=== PATIENT | female | born 1960 | race African-American/Black ===

== ENCOUNTER 2022-03-19 08:41 | Emergency (ER) | payer OTHER, MEDICAID ==
[~2022-03-19] VITALS: Ht 160 cm; Wt 76.1 kg
[~2022-03-19 08:41] MED LIST: FLUT100M7 IN; LIS5T GT; MON10T GT; TRIA50TA2 PO
[2022-03-19 09:17] VITALS: BP 129/102
[2022-03-19] MEDS ORDERED: ALBUTEROL MEDNEB 2.5 mg/3ml NEB ONE (09:24)
[2022-03-19] MEDS ORDERED: IPRATROPIUM BROM 0.5 MG/2.5ML INH SOL NEB ONE (09:30)
[2022-03-19] MEDS ORDERED: ALBUTEROL SULF 2.5 MG/0.5ML(0.5%) NEB SOLN NEB ONE (09:30)
[2022-03-19] MEDS ORDERED: PROMETHAZINE-DM 5 ML ORAL SYRUP PO ONE (09:30)
[2022-03-19] MEDS ORDERED: methylPREDNISolone SOD SUCC 125 MG/2 ML VL IM ONE (09:30)
[2022-03-19] MEDS ORDERED: PROM1SOL4 PO (09:57)
[2022-03-19] MEDS ORDERED: LEVO500T31 PO (09:57)
[2022-03-19] MEDS ORDERED: PRED20TA2 PO (09:57)
== END 2022-03-19 10:15 | disposition home or self-care (01) ==
LOC: ER 08:41
DX: J20.9 Acute bronchitis, unspecified (principal); J44.0 Chronic obstructive pulmonary disease with (acute) lower respiratory infection; I10 Essential (primary) hypertension; F17.210 Nicotine dependence, cigarettes, uncomplicated; Z98.51 Tubal ligation status
CPT/HCPCS: 71046; 93005; 94640; 96372; 99283; J2930; J7644

== ENCOUNTER 2022-10-30 19:40 | Inpatient (IN) | payer OTHER, MEDICAID ==
[~2022-10-30] VITALS: Ht 160 cm; Wt 80.0 kg
[~2022-10-30 19:40] MED LIST changes: +LEVO500T31 PO; +PRED20TA2 PO; +PROM1SOL4 PO; -TRIA50TA2 PO; +TRIA75TA11 PO
[2022-10-30] MEDS ORDERED: ALBUTEROL SULF 2.5 MG/0.5ML(0.5%) NEB SOLN HHN ONE (20:15)
[2022-10-30] MEDS ORDERED: IPRATROPIUM BROM 0.5 MG/2.5ML INH SOL HHN ONE (20:15)
[2022-10-30 21:05] LABS: Urine Bacteria NONE SEEN /hpf (None Seen); Urine Blood 1+ /uL (Negative); Urine Clarity Clear (Clear); Urine Color Yellow (Yellow); Urine Hyaline Cast FEW /lpf (0 - 2); Urine Protein, UAD Negative (Negative); Urine Specific Gravity 1.028 (1.001-1.035); Urine Urobilinogen Normal (Negative); Urine WBC 1 /hpf (0 - 5)
[2022-10-30 21:11] LABS: COVID19 ANTIGEN SOFIA FIA NEGATIVE (NEGATIVE); Rapid Influenza A Negative (Negative); Rapid Influenza B Negative (Negative)
[2022-10-30 21:37] VITALS: PULSE 72; RESP 16; O2SAT 100
[2022-10-30 21:43] LABS: Basophils # (auto) 0.1 10 ^3/uL (0-0.2); Basophils % (auto) 0.5 % (0.0-2.0); Eosinophils # (auto) 0.3 10 ^3/uL (0-0.8); Eosinophils % (auto) 2.1 % (0.0-7.0); Hematocrit 42.8 % (36.0-46.0); Hemoglobin 13.8 g/dL (12.2-16.2); Lymphocytes # (auto) 5.4 10 ^3/uL (0.4-5.4); Lymphocytes % (auto) 43.4 % (10.0-50.0); Mean Corpuscular Hemoglobin 28.1 pg (28.0-32.0); Mean Corpuscular Hgb Conc. 32.2 g/dL (32.0-36.0); Monocytes # (auto) 0.8 10 ^3/uL (0-1.3); Monocytes % (auto) 6.4 % (0.0-12.0); Neutrophils # (auto) 5.9 10 ^3/uL (1.6-8.6); Neutrophils % (auto) 47.6 % (37.0-80.0); Red Blood Cells 4.91 10^6/uL (4.0-5.20); Red Cell Distribution Width 13.8 % (11.8-14.3); White Blood Cell 12.4 10^3/uL (4.4-10.8)
[2022-10-30] MEDS ORDERED: ALBUTEROL SULF 2.5 MG/0.5ML(0.5%) NEB SOLN NEB PRN (22:00)
[2022-10-30] MEDS ORDERED: ACETAMINOPHEN 325 MG TAB PO PRN (22:00)
[2022-10-30] MEDS ORDERED: ONDANSETRON HCL 4 MG/2 ML VIAL IV PRN (22:00)
[2022-10-30] MEDS ORDERED: HYDROcodone-ACET 5/325MG TAB PO PRN (22:00)
[2022-10-30] MEDS ORDERED: IPRATROPIUM BROM 0.5 MG/2.5ML INH SOL NEB PRN (22:00)
[2022-10-30] MEDS ORDERED: hydrALAZINE HCL 20 MG/ML VL IV PRN (22:00)
[2022-10-30] MEDS ORDERED: DOCUSATE SOD 100 MG CAP PO PRN (22:00)
[2022-10-30 22:07] LABS: Alanine Aminotransferase 12 U/L (7-40); Albumin 4.2 g/dL (3.2-4.8); Alkaline Phosphatase 76 U/L (46-116); Anion Gap 4 (5-15); Aspartate Aminotransferase < 8 U/L (13-40); BUN/Creatinine Ratio 10.9 (10.0-20.0); Bilirubin, Total 0.2 mg/dL (0.2-1.0); Blood Urea Nitrogen 10 mg/dL (9-23); Calcium 9.4 mg/dL (8.7-10.4); Carbon Dioxide 30 mmol/L (20-30); Chloride 109 mmol/L (98-107); Glucose 118 mg/dL (74-106); Magnesium 1.8 mg/dL (1.6-2.6); Potassium 3.8 mmol/L (3.5-5.1); Sodium 143 mmol/L (136-145); Total Protein 6.5 g/dL (5.7-8.2)
[2022-10-30 22:37] VITALS: BP 175/73; PULSE 72; RESP 16; TEMP 98.4; O2SAT 98
[2022-10-30] MEDS ORDERED: MORPHINE SULFATE INJ 2 MG/ml SYRG IV PRN (22:45)
[2022-10-30] MEDS ORDERED: NITROGLYCERIN 0.4 MG SL TAB SL PRN (22:45)
[2022-10-30] MEDS: SODIUM CHLOR 0.9% PF (SALINE LOCK) 10ML VIAL/SYR IV SCH (22:51)
[2022-10-30] MEDS: methylPREDNISolone SOD SUCC 40 MG/ML VL IV SCH (22:51)
[2022-10-30] MEDS: FAMOTIDINE (10MG/ML) 2ML VL IV SCH (22:51)
[2022-10-30 23:00] VITALS: PULSE 62; RESP 20; O2SAT 100
[2022-10-31] VITALS (17 sets, daily range): BP systolic 119–150; BP diastolic 53–60; PULSE 57–80; RESP 16–20; TEMP 97.7–97.9; O2SAT 95–100
[2022-10-31 04:40] LABS: Basophils # (auto) 0 10 ^3/uL (0-0.2); Basophils % (auto) 0.3 % (0.0-2.0); Eosinophils # (auto) 0 10 ^3/uL (0-0.8); Hematocrit 40.8 % (36.0-46.0); Hemoglobin 13.5 g/dL (12.2-16.2); Lymphocytes # (auto) 0.8 10 ^3/uL (0.4-5.4); Lymphocytes % (auto) 7.8 % (10.0-50.0); Mean Corpuscular Hemoglobin 28.6 pg (28.0-32.0); Mean Corpuscular Volume 86.6 fL (80.0-100.0); Monocytes # (auto) 0.1 10 ^3/uL (0-1.3); Monocytes % (auto) 1.1 % (0.0-12.0); Neutrophils # (auto) 9.6 10 ^3/uL (1.6-8.6); Neutrophils % (auto) 90.8 % (37.0-80.0); Red Blood Cells 4.71 10^6/uL (4.0-5.20); White Blood Cell 10.6 10^3/uL (4.4-10.8)
[2022-10-31 04:58] LABS: Alanine Aminotransferase 12 U/L (7-40); Albumin 4.2 g/dL (3.2-4.8); Alkaline Phosphatase 58 U/L (46-116); Calcium 8.9 mg/dL (8.5-10.1); Carbon Dioxide 24 mmol/L (20-30); Chloride 110 mmol/L (98-107)
[2022-10-31 04:59] LABS: Anion Gap 8 (5-15); Aspartate Aminotransferase 8 U/L (13-40); BUN/Creatinine Ratio 12.8 (10.0-20.0); Bilirubin, Total 0.3 mg/dL (0.2-1.0); Blood Urea Nitrogen 10 mg/dL (9-23); Glucose 153 mg/dL (74-106); Potassium 4.3 mmol/L (3.5-5.1); Sodium 142 mmol/L (136-145); Total Protein 6.5 g/dL (5.7-8.2)
[2022-10-31] MEDS: SODIUM CHLOR 0.9% PF (SALINE LOCK) 10ML VIAL/SYR IV SCH ×3 (06:09→21:55)
[2022-10-31] MEDS: methylPREDNISolone SOD SUCC 40 MG/ML VL IV SCH (06:58)
[2022-10-31] MEDS ORDERED: LISINOPRIL 10 MG TAB PO SCH (10:00)
[2022-10-31] MEDS: FAMOTIDINE (10MG/ML) 2ML VL IV SCH ×2 (10:14→21:47)
[2022-10-31] MEDS: AZITHROMYCIN 500MG/ 250ML 250 ML IV SCH (11:17)
[2022-10-31] MEDS ORDERED: CYCLOBENZAPRINE HCL 10 MG TAB PO PRN (13:15)
[2022-10-31] MEDS ORDERED: NICOTINE 14 MG/24HR TOPICAL PATCH TD ONE (13:15)
[2022-10-31] MEDS ORDERED: ALBUTEROL SULF 2.5 MG/0.5ML(0.5%) NEB SOLN NEB PRN (13:30)
[2022-10-31] MEDS: IPRATROPIUM BROM 0.5 MG/2.5ML INH SOL NEB SCH (18:21)
[2022-10-31] MEDS: ALBUTEROL SULF 2.5 MG/0.5ML(0.5%) NEB SOLN NEB SCH (18:21)
[2022-10-31] MEDS: ATORVASTATIN 20 MG TAB PO SCH (21:47)
[2022-10-31] MEDS: methylPREDNISolone SOD SUCC 125 MG/2 ML VL IV SCH (21:50)
[2022-11-01] VITALS (14 sets, daily range): BP systolic 117–154; BP diastolic 59–69; PULSE 56–81; RESP 14–20; TEMP 36.5; O2SAT 93–100
[2022-11-01] MEDS: IPRATROPIUM BROM 0.5 MG/2.5ML INH SOL NEB SCH ×3 (05:52→19:50)
[2022-11-01] MEDS: ALBUTEROL SULF 2.5 MG/0.5ML(0.5%) NEB SOLN NEB SCH ×3 (05:52→19:50)
[2022-11-01] MEDS: SODIUM CHLOR 0.9% PF (SALINE LOCK) 10ML VIAL/SYR IV SCH ×3 (05:53→21:09)
[2022-11-01 06:22] LABS: Basophils # (auto) 0 10 ^3/uL (0-0.2); Eosinophils # (auto) 0 10 ^3/uL (0-0.8); Hematocrit 44.3 % (36.0-46.0); Hemoglobin 14.3 g/dL (12.2-16.2); Lymphocytes # (auto) 1.4 10 ^3/uL (0.4-5.4); Lymphocytes % (auto) 8.5 % (10.0-50.0); Mean Corpuscular Hemoglobin 27.9 pg (28.0-32.0); Mean Corpuscular Hgb Conc. 32.4 g/dL (32.0-36.0); Mean Corpuscular Volume 86.3 fL (80.0-100.0); Monocytes # (auto) 0.4 10 ^3/uL (0-1.3); Monocytes % (auto) 2.2 % (0.0-12.0); Neutrophils # (auto) 14.4 10 ^3/uL (1.6-8.6); Neutrophils % (auto) 89.3 % (37.0-80.0); Red Blood Cells 5.13 10^6/uL (4.0-5.20); Red Cell Distribution Width 14.1 % (11.8-14.3); White Blood Cell 16.1 10^3/uL (4.4-10.8)
[2022-11-01 06:38] LABS: Alanine Aminotransferase 11 U/L (7-40); Albumin 4.1 g/dL (3.2-4.8); Alkaline Phosphatase 55 U/L (46-116); Anion Gap 5 (5-15); Aspartate Aminotransferase < 8 U/L (13-40); Blood Urea Nitrogen 10 mg/dL (9-23); Carbon Dioxide 27 mmol/L (20-30); Chloride 108 mmol/L (98-107); Cholesterol 246 mg/dL (< 200); Glucose 144 mg/dL (74-106); LDL Cholesterol 161 mg/dL (< 100); Magnesium 1.7 mg/dL (1.6-2.6); Potassium 4.3 mmol/L (3.5-5.1); Sodium 140 mmol/L (136-145); Triglycerides 64 mg/dL (< 150)
[2022-11-01 06:39] LABS: Bilirubin, Total 0.4 mg/dL (0.2-1.0); HDL Cholesterol 75 mg/dL (40-59); Total Protein 6.4 g/dL (5.7-8.2)
[2022-11-01 06:45] LABS: INR 0.98 (0.9-1.15); Prothrombin Time 10.3 sec (9.3-11.8)
[2022-11-01] MEDS: FAMOTIDINE (10MG/ML) 2ML VL IV SCH ×2 (09:26→21:08)
[2022-11-01] MEDS: methylPREDNISolone SOD SUCC 125 MG/2 ML VL IV SCH ×2 (09:26→21:06)
[2022-11-01] MEDS: AZITHROMYCIN 500MG/ 250ML 250 ML IV SCH (09:27)
[2022-11-01] MEDS ORDERED: LISINOPRIL 10 MG TAB PO SCH (10:00)
[2022-11-01] MEDS ORDERED: NICOTINE 14 MG/24HR TOPICAL PATCH TD SCH (10:00)
[2022-11-01] MEDS: ATORVASTATIN 20 MG TAB PO SCH (21:09)
[2022-11-02 05:00] VITALS: BP 127/62; PULSE 64; RESP 16; TEMP 98; O2SAT 93
[2022-11-02] MEDS: SODIUM CHLOR 0.9% PF (SALINE LOCK) 10ML VIAL/SYR IV SCH (06:30)
[2022-11-02 07:42] VITALS: PULSE 70; RESP 20; O2SAT 90
[2022-11-02] MEDS: ALBUTEROL SULF 2.5 MG/0.5ML(0.5%) NEB SOLN NEB SCH (07:49)
[2022-11-02] MEDS: IPRATROPIUM BROM 0.5 MG/2.5ML INH SOL NEB SCH (07:49)
[2022-11-02 07:58] VITALS: PULSE 73; RESP 18; O2SAT 96
[2022-11-02] MEDS ORDERED: AZIT500T66 PO (07:58)
[2022-11-02] MEDS ORDERED: NICO14DI5 TD (07:58)
[2022-11-02] MEDS ORDERED: METH4PAK PO (07:58)
[2022-11-02 08:00] VITALS: BP 152/66; PULSE 62; RESP 21; TEMP 97.8; O2SAT 93
[2022-11-02 08:14] VITALS: BP 152/66; PULSE 62; RESP 21; TEMP 97.8; O2SAT 93
[2022-11-03 11:57] LABS: Folate (Folic Acid) 4.65 ng/mL (>5.38)
== END 2022-11-02 09:00 | disposition home or self-care (01) | DRG 189 ==
LOC: ER 19:40 → TELE 22:44 → TELE-CENTR 10-31 10:10
PROVIDERS: ADMIT Nurse Practitioner Family; ATTEND Internal Medicine Pulmonary Disease
DX: J96.21 Acute and chronic respiratory failure with hypoxia (principal); J44.1 Chronic obstructive pulmonary disease with (acute) exacerbation; J44.0 Chronic obstructive pulmonary disease with (acute) lower respiratory infection; J20.9 Acute bronchitis, unspecified; E78.00 Pure hypercholesterolemia, unspecified; F17.210 Nicotine dependence, cigarettes, uncomplicated; E66.3 Overweight; I10 Essential (primary) hypertension; Z20.822 Contact with and (suspected) exposure to COVID-19; Z80.1 Family history of malignant neoplasm of trachea, bronchus and lung; Z90.49 Acquired absence of other specified parts of digestive tract; Z82.49 Family history of ischemic heart disease and other diseases of the circulatory system; Z82.5 Family history of asthma and other chronic lower respiratory diseases; Z71.6 Tobacco abuse counseling; Z68.28 Body mass index [BMI] 28.0-28.9, adult
CPT/HCPCS: 36415; 71046; 74176; 80053; 80061; 81001; 82306; 82607; 82746; 83036; 83605; 83735; 83880; 84443; 84484; 85025; 85379; 85610; 87040; 87426; 87804; 93970; 94640; 94644; 96374; G0378; J3490

== ENCOUNTER 2022-12-17 13:10 | Emergency (ER) | payer OTHER, MEDICAID ==
[~2022-12-17] VITALS: Ht 160 cm; Wt 72.2 kg
[~2022-12-17 13:10] MED LIST changes: +AZIT500T66 PO; +METH4PAK PO; +NICO14DI5 TD
[2022-12-17 14:43] LABS: Alanine Aminotransferase 16 U/L (7-40); Albumin 4.4 g/dL (3.2-4.8); Alkaline Phosphatase 71 U/L (46-116); Anion Gap 6 (5-15); Aspartate Aminotransferase 14 U/L (13-40); BUN/Creatinine Ratio 9.9 (10.0-20.0); Basophils # (auto) 0 10 ^3/uL (0-0.2); Basophils % (auto) 0.4 % (0.0-2.0); Bilirubin, Total 0.4 mg/dL (0.2-1.0); Blood Urea Nitrogen 9 mg/dL (9-23); Carbon Dioxide 30 mmol/L (20-30); Chloride 109 mmol/L (98-107); Eosinophils # (auto) 0.4 10 ^3/uL (0-0.8); Eosinophils % (auto) 3.9 % (0.0-7.0); Glucose 97 mg/dL (74-106); Hematocrit 44.5 % (36.0-46.0); Hemoglobin 14.2 g/dL (12.2-16.2); Lipase 36 U/L (12-53); Lymphocytes # (auto) 3.2 10 ^3/uL (0.4-5.4); Lymphocytes % (auto) 28.9 % (10.0-50.0); Mean Corpuscular Hemoglobin 27.5 pg (28.0-32.0); Monocytes # (auto) 0.8 10 ^3/uL (0-1.3); Monocytes % (auto) 7.5 % (0.0-12.0); Neutrophils # (auto) 6.6 10 ^3/uL (1.6-8.6); Neutrophils % (auto) 59.3 % (37.0-80.0); Nucleated Red Blood Cells % 0.1 %; Potassium 3.9 mmol/L (3.5-5.1); Red Blood Cells 5.17 10^6/uL (4.0-5.20); Red Cell Distribution Width 14.1 % (11.8-14.3); Sodium 145 mmol/L (136-145); Total Protein 6.4 g/dL (5.7-8.2); White Blood Cell 11.1 10^3/uL (4.4-10.8)
[2022-12-17 14:43] LABS: Urine Bacteria NONE SEEN /hpf (None Seen); Urine Blood 2+ /uL (Negative); Urine Clarity Clear (Clear); Urine Color Yellow (Yellow); Urine Hyaline Cast FEW /lpf (0 - 2); Urine Mucus FEW (None Seen); Urine Protein, UAD TRACE (Negative); Urine Specific Gravity 1.031 (1.001-1.035); Urine WBC <1 /hpf (0 - 5); Urine pH 5.5 (5.0-8.0)
[2022-12-17] MEDS ORDERED: KETOROLAC TROMETH 60MG/2ML VIAL IM ONE (16:00)
[2022-12-17] MEDS ORDERED: HYDROcodone-ACET 5/325MG TAB PO ONE (16:00)
[2022-12-17 16:32] VITALS: BP 152/68; PULSE 71; RESP 18; TEMP 97.9; O2SAT 98
== END 2022-12-17 22:33 | disposition home or self-care (01) ==
LOC: ER 13:10
DX: R10.9 Unspecified abdominal pain (principal); I10 Essential (primary) hypertension; E78.5 Hyperlipidemia, unspecified; J44.9 Chronic obstructive pulmonary disease, unspecified; F17.210 Nicotine dependence, cigarettes, uncomplicated; Z98.890 Other specified postprocedural states; Z79.899 Other long term (current) drug therapy
CPT/HCPCS: 36415; 74176; 80053; 81001; 83605; 83690; 85025; 96372; 99285; J1885

== ENCOUNTER 2023-01-11 11:44 | Emergency (ER) | payer OTHER, MEDICAID ==
[~2023-01-11] VITALS: Ht 160 cm; Wt 71.3 kg
[2023-01-11 13:45] VITALS: BP 143/74; PULSE 78; TEMP 97.6
[2023-01-11] MEDS ORDERED: ALBUTEROL MEDNEB 2.5 mg/3ml NEB NEB ONE (14:00)
[2023-01-11] MEDS ORDERED: IPRATROPIUM BROM 0.5 MG/2.5ML INH SOL NEB ONE (14:00)
[2023-01-11 14:26] VITALS: RESP 24; O2SAT 96
== END 2023-01-11 15:47 | disposition home or self-care (01) ==
LOC: ER 11:44
DX: R51.9 Headache, unspecified (principal); J20.9 Acute bronchitis, unspecified; J44.0 Chronic obstructive pulmonary disease with (acute) lower respiratory infection; I10 Essential (primary) hypertension; E78.5 Hyperlipidemia, unspecified; F17.210 Nicotine dependence, cigarettes, uncomplicated; Z98.890 Other specified postprocedural states; Z79.899 Other long term (current) drug therapy; V89.2XXA Person injured in unspecified motor-vehicle accident, traffic, initial encounter; Y93.89 Activity, other specified; Y92.481 Parking lot as the place of occurrence of the external cause; Y99.8 Other external cause status
CPT/HCPCS: 70450; 71045; 94640; 99284; J7644

== ENCOUNTER 2023-03-17 02:37 | Inpatient (IN) | payer OTHER, MEDICAID ==
[2023-03-17] VITALS (7 sets, daily range): BP systolic 148; BP diastolic 75; PULSE 63–82; RESP 18–21; TEMP 97.7; O2SAT 95–100
[~2023-03-17] VITALS: Ht 160 cm; Wt 76.0 kg
[~2023-03-17 02:37] MED LIST changes: -MON10T GT; +MON10T PO
[2023-03-17] MEDS ORDERED: methylPREDNISolone SOD SUCC 125 MG/2 ML VL IV ONE (02:45)
[2023-03-17] MEDS ORDERED: IPRATROPIUM BROM 0.5 MG/2.5ML INH SOL HHN ONE (02:45)
[2023-03-17] MEDS ORDERED: ALBUTEROL SULF 2.5 MG/0.5ML(0.5%) NEB SOLN HHN ONE (02:45)
[2023-03-17 03:27] LABS: Basophils # (auto) 0 10 ^3/uL (0-0.2); Basophils % (auto) 0.2 % (0.0-2.0); Eosinophils # (auto) 0 10 ^3/uL (0-0.8); Eosinophils % (auto) 0.1 % (0.0-7.0); Hemoglobin 14.3 g/dL (12.2-16.2); Lymphocytes # (auto) 1.5 10 ^3/uL (0.4-5.4); Lymphocytes % (auto) 19.8 % (10.0-50.0); Mean Corpuscular Hemoglobin 27.8 pg (28.0-32.0); Mean Corpuscular Hgb Conc. 31.9 g/dL (32.0-36.0); Mean Corpuscular Volume 87.3 fL (80.0-100.0); Monocytes # (auto) 0.3 10 ^3/uL (0-1.3); Monocytes % (auto) 3.9 % (0.0-12.0); Neutrophils # (auto) 5.6 10 ^3/uL (1.6-8.6); Red Blood Cells 5.15 10^6/uL (4.0-5.20); White Blood Cell 7.4 10^3/uL (4.4-10.8)
[2023-03-17 03:37] LABS: Chloride 112 mmol/L (98-107); Sodium 143 mmol/L (136-145)
[2023-03-17 03:38] LABS: Anion Gap 6 (5-15); Carbon Dioxide 25 mmol/L (20-30)
[2023-03-17 03:43] LABS: BUN/Creatinine Ratio 11.3 (10.0-20.0); Blood Urea Nitrogen 9 mg/dL (9-23); Glucose 181 mg/dL (74-106)
[2023-03-17] MEDS ORDERED: ALBUTEROL SULF 2.5 MG/0.5ML(0.5%) NEB SOLN NEB ONE (06:15)
[2023-03-17] MEDS ORDERED: IPRATROPIUM BROM 0.5 MG/2.5ML INH SOL NEB ONE (06:15)
[2023-03-17] MEDS ORDERED: NITROGLYCERIN 0.4 MG SL TAB SL PRN (07:00)
[2023-03-17] MEDS ORDERED: ONDANSETRON HCL 4 MG/2 ML VIAL IV PRN (07:00)
[2023-03-17] MEDS ORDERED: MORPHINE SULFATE INJ 2 MG/ml SYRG IV PRN (07:00)
[2023-03-17] MEDS ORDERED: ACETAMINOPHEN 325 MG TAB PO PRN (07:00)
[2023-03-17] MEDS: ENOXAPARIN SOD 40 MG/0.4 ML SYRINGE SC SCH (10:39)
[2023-03-17] MEDS: hydroCHLOROthiazide 25 MG TAB PO SCH (10:39)
[2023-03-17] MEDS: LOSARTAN POTASSIUM 50 MG TAB PO SCH (10:40)
[2023-03-17] MEDS: ASPirin 81 mg TAB PO SCH (10:40)
[2023-03-17] MEDS ORDERED: guaiFENesin-DM 100/10mg/5ml SYR PO PRN (17:45)
[2023-03-17] MEDS: IPRATROPIUM BROM 0.5 MG/2.5ML INH SOL NEB PRN (17:58)
[2023-03-17] MEDS: ALBUTEROL SULF 2.5 MG/0.5ML(0.5%) NEB SOLN NEB PRN (17:59)
[2023-03-17] MEDS ORDERED: MONTELUKAST SODIUM 10 MG TAB PO SCH (22:00)
[2023-03-17] MEDS: ATORVASTATIN 20 MG TAB PO SCH (22:45)
[2023-03-18] VITALS (12 sets, daily range): BP systolic 130–178; BP diastolic 59–94; PULSE 53–80; RESP 16–20; TEMP 97.9–98.2; O2SAT 94–100
[2023-03-18] MEDS: ALBUTEROL SULF 2.5 MG/0.5ML(0.5%) NEB SOLN NEB PRN (01:05)
[2023-03-18] MEDS: IPRATROPIUM BROM 0.5 MG/2.5ML INH SOL NEB PRN (01:05)
[2023-03-18 05:12] LABS: Basophils # (auto) 0 10 ^3/uL (0-0.2); Basophils % (auto) 0.2 % (0.0-2.0); Chloride 109 mmol/L (98-107); Eosinophils # (auto) 0 10 ^3/uL (0-0.8); Eosinophils % (auto) 0.2 % (0.0-7.0); Hematocrit 40.4 % (36.0-46.0); Hemoglobin 12.8 g/dL (12.2-16.2); Lymphocytes # (auto) 3.3 10 ^3/uL (0.4-5.4); Lymphocytes % (auto) 20.1 % (10.0-50.0); Mean Corpuscular Hemoglobin 27.6 pg (28.0-32.0); Mean Corpuscular Hgb Conc. 31.8 g/dL (32.0-36.0); Monocytes % (auto) 5.9 % (0.0-12.0); Neutrophils # (auto) 12.2 10 ^3/uL (1.6-8.6); Neutrophils % (auto) 73.6 % (37.0-80.0); Potassium 3.9 mmol/L (3.5-5.1); Red Blood Cells 4.65 10^6/uL (4.0-5.20); Sodium 142 mmol/L (136-145); White Blood Cell 16.5 10^3/uL (4.4-10.8)
[2023-03-18 05:13] LABS: Anion Gap 5 (5-15); Carbon Dioxide 28 mmol/L (20-30)
[2023-03-18 05:14] LABS: Calcium 8.8 mg/dL (8.5-10.1)
[2023-03-18 05:18] LABS: Glucose 104 mg/dL (74-106)
[2023-03-18 05:19] LABS: BUN/Creatinine Ratio 14.5 (10.0-20.0); Blood Urea Nitrogen 11 mg/dL (9-23)
[2023-03-18] MEDS ORDERED: LORazepam 0.5 MG TAB PO PRN (09:30)
[2023-03-18] MEDS ORDERED: ALBUTEROL SULF 2.5 MG/0.5ML(0.5%) NEB SOLN NEB PRN (09:30)
[2023-03-18] MEDS ORDERED: ALBUTEROL SULF 2.5 MG/0.5ML(0.5%) NEB SOLN NEB SCH (09:45)
[2023-03-18] MEDS ORDERED: IPRATROPIUM BROM 0.5 MG/2.5ML INH SOL NEB SCH (09:45)
[2023-03-18] MEDS: ASPirin 81 mg TAB PO SCH (10:17)
[2023-03-18] MEDS: ENOXAPARIN SOD 40 MG/0.4 ML SYRINGE SC SCH (10:17)
[2023-03-18] MEDS: PANTOPRAZOLE 40 MG TAB PO SCH (10:17)
[2023-03-18] MEDS: hydroCHLOROthiazide 25 MG TAB PO SCH (10:17)
[2023-03-18] MEDS: LOSARTAN POTASSIUM 50 MG TAB PO SCH (10:17)
[2023-03-18] MEDS: methylPREDNISolone SOD SUCC 40 MG/ML VL IV SCH ×2 (10:18→21:24)
[2023-03-18 10:43] LABS: CRP High Sensitivity 0.08 mg/dL (<1.0); Cholesterol 218 mg/dL (< 200); HDL Cholesterol 69 mg/dL (40-59); LDL Cholesterol 132 mg/dL (< 100); Triglycerides 81 mg/dL (< 150)
[2023-03-18 10:48] LABS: INR 0.95 (0.9-1.15)
[2023-03-18 10:53] LABS: Alanine Aminotransferase 22 U/L (7-40); Albumin 4.1 g/dL (3.2-4.8); Alkaline Phosphatase 55 U/L (46-116); Anion Gap 3 (5-15); Aspartate Aminotransferase 12 U/L (13-40); BUN/Creatinine Ratio 14.6 (10.0-20.0); Bilirubin, Total 0.5 mg/dL (0.2-1.0); Blood Urea Nitrogen 12 mg/dL (9-23); Carbon Dioxide 30 mmol/L (20-30); Chloride 110 mmol/L (98-107); Glucose 84 mg/dL (74-106); Magnesium 1.8 mg/dL (1.6-2.6); Sodium 143 mmol/L (136-145); Total Protein 6.2 g/dL (5.7-8.2)
[2023-03-18] MEDS: AZITHROMYCIN 500MG/ 250ML 250 ML IV SCH (11:38)
[2023-03-18] MEDS: ALBUTEROL SULF 2.5 MG/0.5ML(0.5%) NEB SOLN NEB SCH ×2 (12:34→18:35)
[2023-03-18] MEDS: IPRATROPIUM BROM 0.5 MG/2.5ML INH SOL NEB SCH ×2 (12:34→18:35)
[2023-03-18] MEDS ORDERED: MAGNESIUM SULFATE 1GM/100ML 100 ML IV ONE (14:00)
[2023-03-18] MEDS ORDERED: HYDR25TA4 PO (16:24)
[2023-03-18] MEDS ORDERED: ALBUAER3 INH (16:30)
[2023-03-18] MEDS ORDERED: TIOT1AER2 INH (16:30)
[2023-03-18] MEDS ORDERED: BUDE1AER6 INH (16:30)
[2023-03-18] MEDS ORDERED: FLUT500M2 INH (16:30)
[2023-03-18] MEDS ORDERED: THEO300T36 PO (16:32)
[2023-03-18] MEDS ORDERED: DICL1GEL73 TD (16:41)
[2023-03-18] MEDS ORDERED: VARE1TAB11 PO (16:41)
[2023-03-18] MEDS ORDERED: NIC21P TOP (16:41)
[2023-03-18] MEDS ORDERED: NICO1LOZ5 MT (16:41)
[2023-03-18] MEDS ORDERED: RIME75TA PO (16:46)
[2023-03-18] MEDS ORDERED: ROSU40TA81 PO (16:46)
[2023-03-18] MEDS ORDERED: LOSA50TA46 PO (16:46)
[2023-03-18] MEDS ORDERED: ASPI-543 PO (16:46)
[2023-03-18] MEDS ORDERED: HYDR-4798 PO (16:46)
[2023-03-18 18:45] LABS: COVID19 ANTIGEN SOFIA FIA NEGATIVE (NEGATIVE)
[2023-03-18] MEDS: ATORVASTATIN 20 MG TAB PO SCH (21:39)
[2023-03-18 22:15] LABS: Urine Bacteria NONE SEEN /hpf (None Seen); Urine Blood Negative /uL (Negative); Urine Clarity Clear (Clear); Urine Color Colorless (Yellow); Urine Mucus FEW (None Seen); Urine Protein, UAD Negative (Negative); Urine Specific Gravity 1.014 (1.001-1.035); Urine Urobilinogen Normal (Negative); Urine WBC <1 /hpf (0 - 5)
[2023-03-18 23:35] LABS: Rapid Influenza A Negative (Negative); Rapid Influenza B Negative (Negative)
[2023-03-19] VITALS (8 sets, daily range): BP systolic 131–165; BP diastolic 65–78; PULSE 50–65; RESP 16–20; TEMP 97.8–98.5; O2SAT 3–98
[2023-03-19] MEDS: IPRATROPIUM BROM 0.5 MG/2.5ML INH SOL NEB SCH ×2 (04:37→12:06)
[2023-03-19] MEDS: ALBUTEROL SULF 2.5 MG/0.5ML(0.5%) NEB SOLN NEB SCH ×2 (04:37→12:06)
[2023-03-19 05:36] LABS: Basophils # (auto) 0 10 ^3/uL (0-0.2); Basophils % (auto) 0.1 % (0.0-2.0); Eosinophils # (auto) 0 10 ^3/uL (0-0.8); Hematocrit 43.5 % (36.0-46.0); Lymphocytes # (auto) 1.8 10 ^3/uL (0.4-5.4); Lymphocytes % (auto) 14.5 % (10.0-50.0); Mean Corpuscular Hemoglobin 27.8 pg (28.0-32.0); Mean Corpuscular Hgb Conc. 32.3 g/dL (32.0-36.0); Mean Corpuscular Volume 86.2 fL (80.0-100.0); Monocytes # (auto) 0.4 10 ^3/uL (0-1.3); Neutrophils # (auto) 10.1 10 ^3/uL (1.6-8.6); Neutrophils % (auto) 82.4 % (37.0-80.0); Red Blood Cells 5.05 10^6/uL (4.0-5.20); Red Cell Distribution Width 13.5 % (11.8-14.3); White Blood Cell 12.2 10^3/uL (4.4-10.8)
[2023-03-19 05:51] LABS: Alanine Aminotransferase 20 U/L (7-40); Albumin 3.9 g/dL (3.2-4.8); Alkaline Phosphatase 54 U/L (46-116); Anion Gap 4 (5-15); Aspartate Aminotransferase 10 U/L (13-40); BUN/Creatinine Ratio 11.9 (10.0-20.0); Blood Urea Nitrogen 10 mg/dL (9-23); Calcium 8.9 mg/dL (8.7-10.4); Carbon Dioxide 31 mmol/L (20-30); Chloride 105 mmol/L (98-107); Glucose 128 mg/dL (74-106); Magnesium 2.1 mg/dL (1.6-2.6); Potassium 4.6 mmol/L (3.5-5.1); Sodium 140 mmol/L (136-145)
[2023-03-19 05:52] LABS: Bilirubin, Total 0.4 mg/dL (0.2-1.0); Total Protein 6.1 g/dL (5.7-8.2)
[2023-03-19] MEDS ORDERED: ESOM1CAP12 PO (07:31)
[2023-03-19] MEDS ORDERED: PRED20TA2 PO (07:31)
[2023-03-19] MEDS ORDERED: AZIT-81 PO (07:31)
[2023-03-19] MEDS: ASPirin 81 mg TAB PO SCH (09:59)
[2023-03-19] MEDS: PANTOPRAZOLE 40 MG TAB PO SCH (09:59)
[2023-03-19] MEDS: LOSARTAN POTASSIUM 50 MG TAB PO SCH (10:00)
[2023-03-19] MEDS: hydroCHLOROthiazide 25 MG TAB PO SCH (10:00)
[2023-03-19] MEDS: ENOXAPARIN SOD 40 MG/0.4 ML SYRINGE SC SCH (10:01)
[2023-03-19] MEDS: AZITHROMYCIN 500MG/ 250ML 250 ML IV SCH (10:01)
[2023-03-19] MEDS: methylPREDNISolone SOD SUCC 40 MG/ML VL IV SCH (10:01)
[2023-03-19] MEDS: hydrALAZINE HCL 20 MG/ML VL IV PRN ×2 (11:51→12:03)
== END 2023-03-19 13:11 | disposition home or self-care (01) | DRG 189 ==
LOC: ER 02:37 → EDBD 02:37 → TELE 06:53 → TELE-EAST 06:57
PROVIDERS: ADMIT Internal Medicine Geriatric Medicine; ATTEND Emergency Medicine
DX: J96.21 Acute and chronic respiratory failure with hypoxia (principal); J44.1 Chronic obstructive pulmonary disease with (acute) exacerbation; K29.70 Gastritis, unspecified, without bleeding; K27.9 Peptic ulcer, site unspecified, unspecified as acute or chronic, without hemorrhage or perforation; I10 Essential (primary) hypertension; E78.5 Hyperlipidemia, unspecified; F17.210 Nicotine dependence, cigarettes, uncomplicated; F41.9 Anxiety disorder, unspecified; D72.829 Elevated white blood cell count, unspecified; Z90.49 Acquired absence of other specified parts of digestive tract; Z90.710 Acquired absence of both cervix and uterus
CPT/HCPCS: 36415; 71045; 80048; 80053; 80061; 81001; 83735; 84443; 85025; 85610; 86141; 87426; 87804; 93005; 93306; 94640; 96374; 99291; G0378; J2405

== ENCOUNTER 2023-08-12 09:20 | Emergency (ER) | payer OTHER, MEDICAID ==
[~2023-08-12] VITALS: Ht 160 cm; Wt 73.9 kg
[~2023-08-12 09:20] MED LIST changes: +ALBUAER3 INH; +ASPI-543 PO; +AZIT-185 PO; -AZIT500T66 PO; +BUDE1AER6 INH; +DICL1GEL73 TD; +ESOM1CAP12 PO; -FLUT100M7 IN; +FLUT500M2 INH; +HYDR-4798 PO; +HYDR25TA4 PO; -LEVO500T31 PO; -LIS5T GT; +LOSA-534 PO; -METH4PAK PO; -MON10T PO; +NIC21P TOP; -NICO14DI5 TD; +NICO1LOZ5 MT; -PROM1SOL4 PO; +RIME75TA PO; +ROSU40TA81 PO; +TIOT1AER2 INH; -TRIA75TA11 PO; +VARE1TAB11 PO
[2023-08-12] MEDS ORDERED: METH4PAK PO (12:19)
[2023-08-12 12:26] VITALS: BP 160/78; PULSE 78; RESP 16; TEMP 98; O2SAT 97
== END 2023-08-12 12:30 | disposition home or self-care (01) ==
LOC: ER 09:24
DX: J20.9 Acute bronchitis, unspecified (principal); J44.0 Chronic obstructive pulmonary disease with (acute) lower respiratory infection; E78.5 Hyperlipidemia, unspecified; F17.210 Nicotine dependence, cigarettes, uncomplicated; I10 Essential (primary) hypertension; Z98.51 Tubal ligation status; Z90.49 Acquired absence of other specified parts of digestive tract
CPT/HCPCS: 71046

== ENCOUNTER 2024-05-29 15:15 | Emergency (ER) | payer OTHER, MEDICAID ==
[~2024-05-29] VITALS: Ht 160 cm; Wt 81.8 kg
[~2024-05-29 15:15] MED LIST changes: -ESOM1CAP12 PO; +ESOM1CAP38 PO; +METH4PAK PO
[2024-05-29 15:21] VITALS: RESP 18; O2SAT 96
--- NOTE | 2024-05-29 15:41 | ED.PDOC ---
SOB-HPI HPI Comments 64 y.o female with PMHx of COPD and HTN, presents to the ED via EMS for a chief complaint of SOB associated with a generalized headache and a cough that started 2 days ago. Patient reports using inhaler and breathing treatments at home but had no relief. Patient smoked a cigarette today which exacerbated her COPD, prompting her to call 911 today. EMS reports SPO2 in the low 90's, gave one breathing treatment and SPO2 increased to 100% with patient feeling relief as well. Patient denies any chest pain, nausea, vomiting, diarrhea, fever, or chills. 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 Associated Signs and Symptoms: Cough If cough with SOB: Productive Past Medical History PAST MEDICAL HISTORY: COPD, High Lipids, HTN Surgical History: Appendectomy, BTL, Cholecystectomy, , Tonsillectomy, Tubal Ligation 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 CHAIN OFFBEARER History: Denies all GREEN CHAIN OFFBEARER Hx Family History Family History: Reviewed,noncontributory to illness, Family hx of Cancer Social History Smoker: Cigarettes, Less Than 1 Pack/Day Alcohol: Denies ETOH Use Drugs: Denies Drug Use Lives In: Home Constitutional: denies: chills, diaphoresis, fatigue, fever, malaise, sweats, weakness, others EENTM: denies: blurred vision, double vision, ear bleeding, ear discharge, ear drainage, ear pain, ear ringing, eye pain, eye redness, hearing loss, mouth pain, mouth swelling, nasal discharge, nose bleeding, nose congestion, nose pain, photophobia, tearing, throat pain, throat swelling, voice changes, others Respiratory: reports: cough, SOB at rest, shortness of breath, SOB with excertion; denies: hemoptysis, orthopnea, stridor, wheezing, others Cardiovascular: denies: chest pain, dizzy spells, diaphoresis, Dyspnea on exertion, edema, irregular heart beat, left arm pain, lightheadedness, palpitations, PND, syncope, others Gastrointestinal: denies: abdomen distended, abdominal pain, blood streaked bowels, constipated, diarrhea, dysphagia, difficulty swallowing, hematemesis, melena, nausea, poor appetite, poor fluid intake, rectal bleeding, rectal pain, vomiting, others Genitourinary: denies: abnormal vagina bleeding, burning, dyspareunia, dysuria, flank pain, frequency, hematuria, incontinence, pain, , vagina discharge, urgency, others Neurological: reports: headache; denies: dizziness, fainting, left sided numbness, left sided weakness, numbness, paresthesia, pre-existing deficit, right sided numbness, right sided weakness, seizure, speech problems, tingling, tremors, weakness, others Musculoskeletal: denies: back pain, gout, joint pain, joint swelling, muscle pain, muscle stiffness, neck pain, others Integumetry: denies: bruises, change in color, change in hair/nails, dryness, laceration, lesions, lumps, rash, wounds, others Allergic/Immunocompromised: denies: Difficulty Healing, Frequent Infections, Hives, Itching, others Hematologic/Lymphatic: denies: anemia, blood clots, easy bleeding, easy bruising, swollen glands, others Endocrine: denies: excessive hunger, excessive sweating, excessive thirst, excessive urination, flushing, intolerance to cold, intolerance to heat, unexplained weight gain, unexplained weight loss, others Psychiatric: denies: anxiety, bipolar disorder, depression, hopeless, panic disorder, schizophrenia, sleepless, suicidal, others All Other Systems: Reviewed and Negative Physical Exam General Appearance: No Apparent Distress, Normal HEENT: Normal ENT Inspection, Pharynx Normal, TMs Normal Neck: Full Range of Motion, Non-Tender, Normal, Normal Inspection Respiratory: No Respiratory Distress, Wheezing (expiratory ), Other (able to speak in full sentences ) Cardiovascular: No Edema, No JVD, No Murmur, No Gallop, Normal Peripheral Pulses, Regular Rate/Rhythm Breast Exam: Deferred Gastrointestinal: No Organomegaly, Non Tender, No Pulsatile Mass, Normal Bowel Sounds, Soft Genitalia: Deferred Pelvic: Deferred Rectal: Deferred Extremities: No calf tenderness, Normal capillary refill, Normal inspection, Normal range of motion, Non-tender, No pedal edema Musculoskeletal : Apperance: Normal Neurologic: Alert, surgical elastic knitter hand frame II-XII nml as Tested, No Motor Deficits, Normal Affect, Normal Mood, No Sensory Deficits Cerebellar Function: Normal Reflexes: Normal Skin: Dry, Normal Color, Warm Lymphatic: No Adenopathy Was a procedure done? Was a procedure done?: No Differential Dx Differential Diagnosis: Anxiety, Asthma, Bronchitis, CHF, COPD, Dysrhythmia, Myocardial infarction, Panic Attack, Pneumonia, Pneumothorax, Pulmonary Embolism, Respiratory Distress, URI X-Ray, Labs, Meds, VS Vital Signs Date Time Temp Pulse Resp B/P (MAP) Pulse Ox O2 Delivery O2 Flow Rate FiO2 05/29/24 15:58 26 94 Room Air* 0 21 05/29/24 15:45 70 05/29/24 15:21 16 96 Cool Aerosol 15 N/A 05/29/24 15:21 98.3 73 16 154/100 (118) 96 98.3 05/29/24 15:21 18 96 Room Air* 0 21 Lab Test 05/29/24 17:14 05/29/24 16:47 05/29/24 15:50 Range/Units Troponin I High Sensitivity 6 5 </=34 ng/L Influenza Type A Antigen Negative Negative Influenza Type B Antigen Negative Negative SARS-CoV-2 Antigen (Rapid) Negative NEGATIVE White Blood Count 9.5 4.4-10.8 10^3/uL Red Blood Count 5.08 4.0-5.20 10^6/uL Hemoglobin 14.2 12.2-16.2 g/dL Hematocrit 44.4 36.0-46.0 % Mean Corpuscular Volume 87.5 80.0-100.0 fL Mean Corpuscular Hemoglobin 27.9 L 28.0-32.0 pg Mean Corpuscular Hemoglobin Concent 31.9 L 32.0-36.0 g/dL Red Cell Distribution Width 13.8 11.8-14.3 % Platelet Count 244 140-450 10^3/uL Mean Platelet Volume 7.1 6.9-10.8 fL Neutrophils (%) (Auto) 50.1 37.0-80.0 % Lymphocytes (%) (Auto) 34.6 10.0-50.0 % Monocytes (%) (Auto) 7.1 0.0-12.0 % Eosinophils (%) (Auto) 7.5 H 0.0-7.0 % Basophils (%) (Auto) 0.7 0.0-2.0 % Neutrophils # (Auto) 4.8 1.6-8.6 10 ^3/uL Lymphocytes # (Auto) 3.3 0.4-5.4 10 ^3/uL Monocytes # (Auto) 0.7 0-1.3 10 ^3/uL Eosinophils # (Auto) 0.7 0-0.8 10 ^3/uL Basophils # (Auto) 0.1 0-0.2 10 ^3/uL Nucleated Red Blood Cells 0.0 % Sodium Level 144 136-145 mmol/L Potassium Level 4.3 3.5-5.1 mmol/L Chloride Level 113 H 98-107 mmol/L Carbon Dioxide Level 26 20-31 mmol/L Anion Gap 5 5-15 Blood Urea Nitrogen 14 9-23 mg/dL Creatinine 1.02 0.550-1.02 mg/dL Glomerular Filtration Rate Calc 61 >90 mL/min BUN/Creatinine Ratio 13.7 10.0-20.0 Serum Glucose 143 H 74-106 mg/dL Calcium Level 9.4 8.7-10.4 mg/dL B-Type Natriuretic Peptide 24.16 0-100 pg/mL Current Medications Medications (Trade) Dose Ordered Sig/Fredy Route Start Time Stop Time Status Last Admin Albuterol (Ventolin Medneb) 5 mg ONCE ONCE NEB 05/29/24 15:45 05/29/24 15:46 DC 05/29/24 15:58 Ipratropium [place] (Atrovent Medneb) 0.5 mg ONCE ONCE NEB 05/29/24 15:45 05/29/24 15:46 DC 05/29/24 15:58 Time of 1ST Reevaluation: 15:40 Reevaluation 1ST: Unchanged Time of 2ND Reevaluation: 18:57 Reevaluation 2ND: Resolved Patient Education/Counseling: Diagnosis, Treatment, Prognosis, Need For Follow Up Family Education/Counseling: No Family Present Additional Information Previous visit: 08/12/23 for acute bronchitis 03/17/23 for COPD exacerbation The following tests were ordered, and results were reviewed by me: CXR, CBC, BMP, troponin x3, Covid and Influenza swabs Additional Information was gathered from interviewing the following independent historians: Paramedics I reviewed and agreed with the following test results read by other providers: CXR I discussed treatment and results with medical personnel and: patient Comprehensive systems review obtained and negative except for what is stated in the HPI. pt reports she is improved and declined to be admitted for further treatments. she would like to go home and promised she would stop smoking. she states she has medications at home Departure 1 Departure Time of Disposition: 18:58 Impression: Primary Impression: COPD exacerbation Additional Impression: Tobacco abuse Disposition: HOME / SELF CARE / HOMELESS Condition: Good e-Prescriptions Prednisone (Prednisone) 20 Mg Tab 20 MG PO DAILY for 3 Days, #3 MG Prov: JOSH PULIDO MD 05/29/24 Discharged With: Self Critical Care Note Critical Care Time?: No Stability Stability form required: No Heart Score Heart Score: Heart Score Response (Comments) Value History N/A 0 EKG N/A 0 Age N/A 0 Risk Factors N/A 0 Troponin N/A 0 Total 0 I personally scribed for JOSH PULIDO MD ([email or web address]) on 05/29/24 at 15:41. Electronically submitted by Dorie Nogueira ([employer]). I personally scribed for JOSH PULIDO MD ([email or web address] on 05/29/24 at 15:43. Electronically submitted by Dorie Nogueira ([employer]). JOSH PULIDO MD May 29, 2024 15:41
[2024-05-29] MEDS: ALBUTEROL SULF 2.5 MG/0.5ML(0.5%) NEB SOLN NEB ONE (15:58)
[2024-05-29] MEDS: IPRATROPIUM BROM 0.5 MG/2.5ML INH SOL NEB ONE (15:58)
[2024-05-29 16:06] LABS: Basophils # (auto) 0.1 10 ^3/uL (0-0.2); Basophils % (auto) 0.7 % (0.0-2.0); Eosinophils # (auto) 0.7 10 ^3/uL (0-0.8); Eosinophils % (auto) 7.5 % (0.0-7.0); Hematocrit 44.4 % (36.0-46.0); Hemoglobin 14.2 g/dL (12.2-16.2); Lymphocytes # (auto) 3.3 10 ^3/uL (0.4-5.4); Lymphocytes % (auto) 34.6 % (10.0-50.0); Mean Corpuscular Hemoglobin 27.9 pg (28.0-32.0); Mean Corpuscular Hgb Conc. 31.9 g/dL (32.0-36.0); Mean Corpuscular Volume 87.5 fL (80.0-100.0); Monocytes # (auto) 0.7 10 ^3/uL (0-1.3); Monocytes % (auto) 7.1 % (0.0-12.0); Neutrophils # (auto) 4.8 10 ^3/uL (1.6-8.6); Neutrophils % (auto) 50.1 % (37.0-80.0); Platelet Count (auto) 244 10^3/uL (140-450); Red Blood Cells 5.08 10^6/uL (4.0-5.20); Red Cell Distribution Width 13.8 % (11.8-14.3); White Blood Cell 9.5 10^3/uL (4.4-10.8)
[2024-05-29 16:10] LABS: Potassium 4.3 mmol/L (3.5-5.1); Sodium 144 mmol/L (136-145)
[2024-05-29 16:11] LABS: Anion Gap 5 (5-15); Carbon Dioxide 26 mmol/L (20-31)
[2024-05-29 16:12] LABS: Calcium 9.4 mg/dL (8.7-10.4)
[2024-05-29 16:17] LABS: BUN/Creatinine Ratio 13.7 (10.0-20.0); Blood Urea Nitrogen 14 mg/dL (9-23); Chloride 113 mmol/L (98-107); Glucose 143 mg/dL (74-106)
--- NOTE | 2024-05-29 16:51 | ECG ---
[facility] Test Date: 2024-05-29 Test Time: 15:45:44 Pat Name: HERMELINDA HUDSON Department: ED Room: Gender: F Student Teaching Coordinator: CURTIS : 1960 Requested By: JOSH PULIDO Order Number: [id number] Reading MD: Reji Houston Measurements Intervals [place] Rate: 70 P: 82 MS: 131 QRS: 77 QRSD: 92 T: 0 QT: 434 QTc: 469 Interpretive Statements Sinus rhythm Electronically Signed On 06-01-2024 20:56:04 PDT by Reji Houston Please click the below link to view image of tracing.
--- NOTE | 2024-05-29 16:59 | DVH ---
XY CHEST PORTABLE, HISTORY: sob COMPARISON: XY CHEST PORTABLE on DOS: 03/17/23, XY CHEST XRAY 1 VIEW on DOS: 01/11/23 XY CHEST PORTABLE on DOS: 03/17/23, XY CHEST XRAY 1 VIEW on DOS: 01/11/23 TECHNICAL DATA: 1 view of the chest was obtained. FINDINGS: Lines and tubes: None Cardiomediastinal silhouette: normal Pulmonary vasculature: normal Lung expansion: normal Lung airspace: normal Lung interstitium: normal Pleura: normal Pneumothorax: no Bones: Unremarkable Other: no IMPRESSION: No acute intrathoracic abnormality.
[2024-05-29 18:37] LABS: COVID19 ANTIGEN SOFIA FIA NEGATIVE (NEGATIVE); Rapid Influenza A Negative (Negative); Rapid Influenza B Negative (Negative)
[2024-05-29] MEDS ORDERED: PRED20TA2 PO (18:59)
[2024-05-29 19:34] VITALS: BP 166/89; PULSE 70; RESP 18; TEMP 98.1; O2SAT 97
[2024-05-29] MEDS: DexAMETHasone SOD PHOS 10MG/1ML VIAL INJ PO ONE (19:36)
== END 2024-05-29 19:40 | disposition home or self-care (01) ==
LOC: ER 15:15 → EDBD 15:15 → ER 19:40
DX: J44.1 Chronic obstructive pulmonary disease with (acute) exacerbation (principal); F17.210 Nicotine dependence, cigarettes, uncomplicated; I10 Essential (primary) hypertension; E78.5 Hyperlipidemia, unspecified; Z90.49 Acquired absence of other specified parts of digestive tract; Z90.89 Acquired absence of other organs; Z98.51 Tubal ligation status; Z98.890 Other specified postprocedural states; Z20.822 Contact with and (suspected) exposure to COVID-19
CPT/HCPCS: 36415; 71045; 80048; 83880; 84484; 85025; 87426; 87804; 93005; 94640